=== PATIENT | male | born 1960 | race Caucasian/White ===

== ENCOUNTER 2023-10-03 06:07 | Day surgery (SDC) | payer BC, SELFPAY ==
--- NOTE | 2023-09-12 10:50 | CM ---
Patient is scheduled for lumbar spine surgery on 10/03/23. Spoke with patient prior to surgery via telephone. Introduced role of the Orthopedic Navigator. Patient reports that he lives with his in a two story home There are two steps to enter
and a flight of steps to the second floor. He currently functions independently. He has a cervical collar but no other DME. PCP is Jaime Chou.
Discussed orthopedic program, post surgical plans and tentative plan for patient to return home when directed by surgeon. Patient is in agreement with tentative plan and will have support from his when he goes home.
Plan: Orthopedic Navigator will remain available to assist with the care of patient and will reassess discharge needs after surgery.
[2023-09-20 12:53] VITALS: BMI 29.9
[2023-09-20 13:51] LABS: Hemoglobin 16.6 g/dL (13.0-18.0); Mean Corp Hgb Conc. 33.9 g/dL (33.0-37.0); Mean Corpuscular Volume 94.4 fL (80.0-94.0); Mean Platelet Volume 10.3 fL (7.4-10.4); Platelet Count 183 10^3/uL (130-400); Red Blood Cell Count 5.19 10^6/uL (4.70-6.10); Red Cell Dist. Width 12.3 % (11.5-14.5); White Blood Cell Count 6.8 10^3/uL (4.8-10.8)
[2023-09-20 14:04] LABS: ALT (SGPT) 29 U/L (0-50); AST (SGOT) 26 U/L (17-59); Albumin 4.5 g/dl (3.5-5.0); Alkaline Phosphatase 76 U/L (38-126); Blood Urea Nitrogen 16 mg/dl (9-20); Calcium 9.6 mg/dl (8.4-10.2); Carbon Dioxide 29 mmol/L (22-30); Chloride 98 mmol/L (98-107); Estimated Creatinine Clearance 110 ml/min; Glucose 92 mg/dl (70-99); Potassium 4.2 mmol/L (3.5-5.1); Sodium 138 mmol/L (135-145); Total Bilirubin 0.6 mg/dl (0.2-1.3); Total Protein 7.1 g/dl (6.3-8.2); eGFR > 60.00
[2023-09-20 15:50] VITALS: BMI 29.9
--- NOTE | 2023-09-21 09:46 | SLEEP.APNEA ---
Sleep Apnea Order
- -
Patient screened as High Risk for Sleep Apnea on [employer] Questionnaire. Patient referred to [facility] for Pre-Study.

Name: TAL ROBBINS
: 1960
Home Phone: Use [email or web address] instead
Cell Phone: [f_Reg Other Phone]
Work Phone:
Address: [facility] [address] [facility]
City: [place]
State: [place]
Zip: [f_[facility] Zip]
Family Physician: Jaime Chou
Height 5 ft 9.5 in
Actual Weight 93.1 kg
Body Mass Index (BMI) 29.9
Ordering Provider: Makayla Villafana PA-C
[2023-10-03] VITALS (10 sets, daily range): BP systolic 127–137; BP diastolic 74–97; BMI 29.9
[2023-10-03] MEDS: CELEBREX 200 MG PO (07:18)
[2023-10-03] MEDS: TYLENOL 1000 MG PO (07:19)
[2023-10-03] MEDS: SKELAXIN 800 MG PO (07:19)
[2023-10-03] MEDS: LYRICA 150 MG PO (07:19)
[2023-10-03] MEDS: NORMOSOL-R 1000 IV (07:30)
[2023-10-03] MEDS: ULTRAM 50 MG PO (11:41)
--- NOTE | 2023-11-07 12:43 | W.PN.UPDATE ---
Update Note
Progress Note Update
Pt should have been an inpatient, not outpatient for a cervical laminectomy
== END 2023-10-03 17:00 | disposition home or self-care (01) | DRG 473 ==
LOC: SDS 06:07
PROVIDERS: ATTENDING PHYSICIAN Orthopaedic Surgery Orthopaedic Surgery of the Spine; FAMILY PHYSICIAN Family Medicine
PROC: 0RT30ZZ Resection of Cervical Vertebral Disc, Open Approach (ICD-10-PCS; 2023-10-03)
PROC: 0RG20A0 Fusion of 2 or more Cervical Vertebral Joints with Interbody Fusion Device, Anterior Approach, Anterior Column, Open Approach (ICD-10-PCS; 2023-10-03)
DX: M48.02 Spinal stenosis, cervical region (principal); I10 Essential (primary) hypertension; E78.5 Hyperlipidemia, unspecified; I45.10 Unspecified right bundle-branch block; K21.9 Gastro-esophageal reflux disease without esophagitis; M19.90 Unspecified osteoarthritis, unspecified site; H91.92 Unspecified hearing loss, left ear; F42.9 Obsessive-compulsive disorder, unspecified
CPT/HCPCS: 22551; 22552; 22853 ×2; 20930; 22845; 36415; 72020; 80053; 85027; 87070; 93005; C1713